=== PATIENT | male | born 1995 | race Caucasian/White ===

== ENCOUNTER 2017-04-28 22:26 | Emergency (ER) | payer BC ==
[~2017-04-28] VITALS: Ht 185.4 cm; Wt 113.4 kg
[~2017-04-28 22:26] MED LIST: LISI10TA PO; PRD20T PO
--- OUTSIDE RECORDS SUMMARY | 2017-04-28 23:36 | XMS REPORT | Clinical Summary ---
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
[2017-04-28] MEDS ORDERED: LACTATED RINGERS 1,000 ML IV ONE (23:43)
[2017-04-29] MEDS ORDERED: cefTRIAXone INJECTION 1,000 MG in NS (IVPB) 50 ML IV ONE ×2
[2017-04-29] MEDS ORDERED: LACTATED RINGERS 1,000 ML IV SCH
[2017-04-29 00:01] LABS: BASOPHILS % (AUTO) 0 % (0-10); EOSINOPHILS % (AUTO) 0 % (0-10); HEMATOCRIT 43 % (40-54); HEMOGLOBIN 14.8 G/DL (13.3-17.7); MEAN CORPUSCULAR HEMOGLOBIN 29 PG (25-34); MEAN CORPUSCULAR HGB CONC 34 G/DL (32-36); MEAN CORPUSCULAR VOLUME 86 FL (80-99); MEAN PLATELET VOLUME 8.8 FL (7.4-10.4); MONOCYTES # (AUTO) 1.5 X 10^3 (0.0-1.0); NEUTROPHILS # (AUTO) 10.7 X 10^3 (1.8-7.8); NEUTROPHILS % (AUTO) 81 % (42-75); PLATELET COUNT 281 10^3/uL (130-400); RED BLOOD COUNT 5.03 10^6/uL (4.35-5.85); RED CELL DISTRIBUTION WIDTH 12.8 % (10.0-14.5); WHITE BLOOD COUNT 13.3 10^3/uL (4.3-11.0)
[2017-04-29 00:02] LABS: LYMPHOCYTES % (AUTO) 9 % (12-44); MONOCYTES % (AUTO) 11 % (0-12)
[2017-04-29 00:04] LABS: PROTHROMBIN TIME PATIENT 13.7 SEC (12.2-14.7)
[2017-04-29 00:14] LABS: ALANINE AMINOTRANSFERASE 46 U/L (0-55); ALBUMIN 4.3 GM/DL (3.2-4.5); ALKALINE PHOSPHATASE 87 U/L (40-136); BILIRUBIN,TOTAL 0.8 MG/DL (0.1-1.0); BUN/CREATININE RATIO 15; CALCIUM 9.4 MG/DL (8.5-10.1); CARBON DIOXIDE 19 MMOL/L (21-32); CHLORIDE 102 MMOL/L (98-107); CREATININE SERUM 1.07 MG/DL (0.60-1.30); GFR ESTIMATED > 60; GLUCOSE 108 MG/DL (70-105); POTASSIUM 3.6 MMOL/L (3.6-5.0); SODIUM 136 MMOL/L (135-145); TOTAL PROTEIN 7.7 GM/DL (6.4-8.2)
--- NOTE | 2017-04-29 00:38 | ED Respiratory ---
General Chief Complaint: Fever-Adult/Adol Stated Complaint: FEVER Source: patient, family (mom) Exam Limitations: no limitations History of Present Illness Date Seen by Provider: Apr 28, 2017 Time Seen by Provider: 22:45 Initial Comments Patient presents to the ER by private conveyance with a chief complaint he was having chest pain on deep inspiration, cough that is nonproductive, fevers with a MAXIMUM TEMPERATURE of 102F for the past 24-48 hours. 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 He does not have a history of asthma, COPD, smoking cigarettes, getting to, previous pneumonias or exposure to influenza that he knows of. He is not on steroids, does not have HIV is not on chemotherapy or any other immunocompromised. 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 He is exposed to dust. Allergies and Home Medications Allergies Coded Allergies: No Known Drug Allergies (Unverified , 12/08/15) Home Medications Prednisone 20 Mg Tab, 40 MG PO DAILY Prescribed by: RAÚL JONES on 12/09/15 0006 Constitutional: chills, No diaphoresis, dizziness, fever, malaise, No weakness EENTM: No ear discharge, No hearing loss Respiratory: cough, No hemoptysis, phlegm, short of breath, No stridor, No wheezing Cardiovascular: No chest pain, No edema, No palpitations Gastrointestinal: No abdominal pain, No constipation, No diarrhea, No nausea, No vomiting Genitourinary: No discharge, No dysuria Musculoskeletal: No back pain, No joint pain Past Kniqctr-Nxmwie-Oraabc Hx Patient Social History Alcohol Use: Occasionally Uses Alcohol Beverage of Choice: Beer Recreational Drug Use: No Smoking Status: Current Someday Smoker Type Used: Cigars Recent Foreign Travel: No Contact w/Someone Who Travel: No Recent Hopitalizations: No Immunizations Up To Date Tetanus Booster (TDap): More than 5yrs PED Vaccines UTD: Yes Seasonal Allergies Seasonal Allergies: Yes Reproductive System Hx Reproductive Disorders: No Family Medical History Significant Family History: No Pertinent Family Hx Physical Exam Vital Signs Capillary Refill : General Appearance: WD/WN, no apparent distress Eyes: Bilateral Eye Normal Inspection, Bilateral Eye PERRL, Bilateral Eye EOMI HEENT: PERRL/EOMI, normal ENT inspection, TMs normal, pharynx normal ( oropharynx is oropharynx is dry) Neck: non-tender, full range of motion, supple, normal inspection Respiratory: chest non-tender, lungs clear, normal breath sounds, no respiratory distress, no accessory muscle use Cardiovascular: normal peripheral pulses, regular rate, rhythm, no edema Gastrointestinal: normal bowel sounds, non tender, soft Neurologic/Psychiatric: alert, normal mood/affect, oriented x 3 Skin: normal color, warm/dry Focused Exam Evaluation Lactate Level Laboratory Tests 04/28/17 23:35: Lactic Acid Level 0.75 Lactic Acid Level Laboratory Tests Test 04/28/17 23:35 Lactic Acid Level 0.75 MMOL/L (0.50-2.00) Progress/Results/Core Measures Suspected Sepsis SIRS Temperature: Pulse: Respiratory Rate: Laboratory Tests 04/28/17 23:35: White Blood Count 13.3H Blood Pressure / Mean: Laboratory Tests 04/28/17 23:35: Lactic Acid Level 0.75 Laboratory Tests 04/28/17 23:35: Creatinine 1.07, INR Comment 1.0, Platelet Count 281, Total Bilirubin 0.8 Results/Orders Lab Results Laboratory Tests Test 04/28/17 23:35 Range/Units White Blood Count 13.3 H 4.3-11.0 10^3/uL Red Blood Count 5.03 4.35-5.85 10^6/uL Hemoglobin 14.8 13.3-17.7 G/DL Hematocrit 43 40-54 % Mean Corpuscular Volume 86 80-99 FL Mean Corpuscular Hemoglobin 29 25-34 PG Mean Corpuscular Hemoglobin Concent 34 32-36 G/DL Red Cell Distribution Width 12.8 10.0-14.5 % Platelet Count 281 130-400 10^3/uL Mean Platelet Volume 8.8 7.4-10.4 FL Neutrophils (%) (Auto) 81 H 42-75 % Lymphocytes (%) (Auto) 9 L 12-44 % Monocytes (%) (Auto) 11 0-12 % Eosinophils (%) (Auto) 0 0-10 % Basophils (%) (Auto) 0 0-10 % Neutrophils # (Auto) 10.7 H 1.8-7.8 X 10^3 Lymphocytes # (Auto) 1.0 1.0-4.0 X 10^3 Monocytes # (Auto) 1.5 H 0.0-1.0 X 10^3 Eosinophils # (Auto) 0.0 0.0-0.3 10^3/uL Basophils # (Auto) 0.0 0.0-0.1 10^3/uL Prothrombin Time 13.7 12.2-14.7 SEC INR Comment 1.0 0.8-1.4 Activated Partial Thromboplast Time 29 24-35 SEC Sodium Level 136 135-145 MMOL/L Potassium Level 3.6 3.6-5.0 MMOL/L Chloride Level 102 98-107 MMOL/L Carbon Dioxide Level 19 L 21-32 MMOL/L Anion Gap 15 H 5-14 MMOL/L Blood Urea Nitrogen 16 7-18 MG/DL Creatinine 1.07 0.60-1.30 MG/DL Estimat Glomerular Filtration Rate > 60 BUN/Creatinine Ratio 15 Glucose Level 108 H 70-105 MG/DL Lactic Acid Level 0.75 0.50-2.00 MMOL/L Calcium Level 9.4 8.5-10.1 MG/DL Total Bilirubin 0.8 0.1-1.0 MG/DL Aspartate Amino Transf (AST/SGOT) 15 5-34 U/L Alanine Aminotransferase (ALT/SGPT) 46 0-55 U/L Alkaline Phosphatase 87 40-136 U/L C-Reactive Protein High Sensitivity 12.73 H 0.00-0.50 MG/DL Total Protein 7.7 6.4-8.2 GM/DL Albumin 4.3 3.2-4.5 GM/DL Micro Results Microbiology 04/28/17 Influenza Types A,B Antigen (CHELSEY) - Final, Complete My Orders Orders - KELLY BAUER Saline Lock/Iv-Start (04/28/17 23:43) Lactated Ringers (Lr 1000 Ml Iv Solution (04/28/17 23:43) Chest Pa/Lat (2 View) (04/28/17 ) Cbc With Automated Diff (04/28/17 23:46) Comprehensive Metabolic Panel (04/28/17 23:46) Blood Culture (04/28/17 23:46) Lactic Acid Analyzer (04/28/17 23:46) Hs C Reactive Protein (04/28/17 23:46) Protime With Inr (04/28/17 23:46) Partial Thromboplastin Time (04/28/17 23:46) Ceftriaxone Injection (Rocephin Injectio (04/29/17 00:00) Lactated Ringers (Lr 1000 Ml Iv Solution (04/29/17 00:00) Influenza A And B Antigens (04/28/17 22:50) Medications Given in ED Current Medications Medications Dose Ordered Sig/Sherron Route Start Time Stop Time Status Last Admin Dose Admin Ceftriaxone Sodium 1000 mg/ Sodium Chloride 50 ml @ 100 mls/hr ONCE ONCE IV 04/29/17 00:00 04/29/17 00:29 DC 04/29/17 00:14 100 MLS/HR Lactated Ringer's 1,000 ml @ 0 mls/hr Q0M ONCE IV 04/28/17 23:43 04/28/17 23:44 DC 04/29/17 00:14 1,000 MLS/HR Vital Signs/I&O Capillary Refill : Progress Note : Time: 00:35 Progress Note No clearly visible infiltrate on chest x-ray however he has a modest white count , pain in his back on deep inspiration and productive cough consistent with pneumonia certainly cover him with Augmentin and azithromycin allow him to go outpatient follow-up next week or 2 with primary care doctor. We've given a dose of Rocephin and azithromycin tonight in the ER. He has improved considerably after a bag of IV fluids and is heart rate is still 100-110 with about half a bag of lactate Ringer's left. Diagnostic Imaging Diagonstic Imaging: Xray Plain Films/CT/US/NM/MRI: chest (2v) Comments No clearly visible infiltrate or other cardiopulmonary processes noted acutely. Reviewed: Reviewed by Me Departure Impression Impression: Primary Impression: Pneumonia Qualified Codes: J18.1 - Lobar pneumonia, unspecified organism Additional Impressions: Dehydration Sepsis Qualified Codes: A41.9 - Sepsis, unspecified organism Disposition: 01 HOME, SELF-CARE Condition: Stable Departure-Patient Inst. Decision time for Depature: 00:41 Referrals: FELIPE ACOSTA MD (PCP/Family) Primary Care Physician Patient Instructions: Community-Acquired Pneumonia, Adult (DC) Add. 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 Take the Augmentin one tablet twice a day for the next 9 days. Follow-up in the next 1-2 weeks with your primary care physician. If you not feeling that you can get enough air in or you're having nausea vomiting or fevers above 102.5 especially more than 3 or 4 days on the antibiotics and return to the ER. All discharge instructions reviewed with patient and/or family. Voiced understanding. Scripts Azithromycin (Azithromycin) 250 Mg Tablet 250 MG PO DAILY, #4 TAB 0 Refills Prov: KELLY BAUER 04/29/17 Amoxicillin/Potassium Clav (Augmentin 875-125 Tablet) 1 Each Tablet 1 EACH PO BID for 9 Days, #18 TAB 0 Refills Prov: KELLY BAUER 04/29/17 Work/School Note: Work Release Form Date Seen in the Emergency Department: Apr 29, 2017 Return to Work: May 03, 2017 Restrictions: No Restrictions Copy Copies To 1: FELIPE ACOSTA MD, TITUS J Apr 29, 2017 00:38
[2017-04-29] MEDS ORDERED: AZIT250T12 PO (00:44)
[2017-04-29] MEDS ORDERED: AMOX-358 PO (00:44)
[2017-04-29] MEDS ORDERED: AZITHROMYCIN 250 MG TAB (ZITHROMAX) PO ONE ×2 (01:01→01:15)
[2017-04-29 01:03] VITALS: BP 142/81
--- NOTE | 2017-04-29 06:52 | Diagnostic Imaging Report ---
INDICATION: Chest pain. FINDINGS: PA and lateral chest show the lungs to be well-aerated. There are no infiltrates. No masses. The heart is not enlarged. There is no pulmonary edema. No hilar adenopathy. No pneumothorax or pleural effusions. No bony abnormalities. IMPRESSION: Normal PA and lateral chest. Dictated by: Dictated on workstation # [id number]
== END 2017-04-29 01:03 | disposition home or self-care (01) ==
LOC: EDUNIT# 22:26 → ER 22:26
DX: J18.9 Pneumonia, unspecified organism (principal); E86.0 Dehydration; A41.9 Sepsis, unspecified organism; F17.290 Nicotine dependence, other tobacco product, uncomplicated; Z79.52 Long term (current) use of systemic steroids
CPT/HCPCS: 36415; 71046; 80053; 83605; 85025; 85610; 85730; 86141; 87040; 87804; 96361; 96365

== ENCOUNTER 2018-05-26 07:39 | Emergency (ER) | payer BC ==
[~2018-05-26] VITALS: Ht 185.4 cm; Wt 111.1 kg
[~2018-05-26 07:39] MED LIST changes: +AMOX-358 PO; +AZIT250T12 PO
[2018-05-26 08:00] LABS: BILIRUBIN,URINE NEGATIVE (NEGATIVE); CLARITY,URINE CLEAR; COLOR,URINE YELLOW; GLUCOSE, URINE (UA) NEGATIVE (NEGATIVE); KETONES,URINE NEGATIVE (NEGATIVE); LEUKOCYTE ESTERASE ,URINE 2+ (NEGATIVE); NITRITE,URINE NEGATIVE (NEGATIVE); PH,URINE 8 (5-9); PROTEIN,URINE 1+ (NEGATIVE); UROBILINOGEN,URINE NORMAL (NORMAL)
[2018-05-26 08:15] LABS: BASOPHILS % (AUTO) 0 % (0-10); EOSINOPHILS % (AUTO) 0 % (0-10); HEMATOCRIT 47 % (40-54); HEMOGLOBIN 15.7 G/DL (13.3-17.7); LYMPHOCYTES # (AUTO) 0.6 X 10^3 (1.0-4.0); LYMPHOCYTES % (AUTO) 4 % (12-44); MEAN CORPUSCULAR HEMOGLOBIN 30 PG (25-34); MEAN CORPUSCULAR HGB CONC 33 G/DL (32-36); MEAN CORPUSCULAR VOLUME 90 FL (80-99); MEAN PLATELET VOLUME 9.2 FL (7.4-10.4); MONOCYTES # (AUTO) 0.7 X 10^3 (0.0-1.0); MONOCYTES % (AUTO) 5 % (0-12); NEUTROPHILS % (AUTO) 91 % (42-75); PLATELET COUNT 313 10^3/uL (130-400); RED CELL DISTRIBUTION WIDTH 13.1 % (10.0-14.5); WHITE BLOOD COUNT 14.3 10^3/uL (4.3-11.0)
[2018-05-26 08:16] LABS: AMORPHOUS SEDIMENT,UR MOD AMOR PHOSPHATE /LPF; BACTERIA,URINE MODERATE /HPF; SQUAMOUS EPITHELIAL CELL,UR RARE /HPF; WBC,URINE 25-50 /HPF
[2018-05-26 08:32] LABS: ALANINE AMINOTRANSFERASE 20 U/L (0-55); ALBUMIN 4.7 GM/DL (3.2-4.5); ALKALINE PHOSPHATASE 87 U/L (40-136); BILIRUBIN,TOTAL 0.6 MG/DL (0.1-1.0); BUN/CREATININE RATIO 15; CARBON DIOXIDE 26 MMOL/L (21-32); CHLORIDE 106 MMOL/L (98-107); CREATININE SERUM 0.92 MG/DL (0.60-1.30); GFR ESTIMATED > 60; GLUCOSE 121 MG/DL (70-105); POTASSIUM 4.4 MMOL/L (3.6-5.0); SODIUM 139 MMOL/L (135-145)
[2018-05-26 08:37] LABS: LYMPHOCYTES % (MANUAL) 5 %; MONOCYTES % (MANUAL) 2 %; NEUTROPHILS % (MANUAL) 93 %; RBC MORPH NORMAL
--- NOTE | 2018-05-26 08:40 | NUR ---
DR NOYOLA IN ROOM WITH PT AT THIS TIME.
--- NOTE | 2018-05-26 08:51 | ED Abdominal Pain ---
General Chief Complaint: Abdominal/GI Problems Stated Complaint: BLOOD IN STOOL;ABD PAIN Nursing Triage Note: PT PRESENTS TO ED WITH COMPLAINTS OF LOWER ABDOMINAL CRAMPING THAT RADIATES UPWARD AND DIZZINESS/LIGHTHEADED/COLD SWEATS. PT STATES STARTED AT 0130 THIS AM. PT STATES HE HAD AN EPISODE OF DIAHRREA AT 0200. REPORTS INITIALLY JUST NOTICED BLOOD WHEN HE WIPED BUT STARTED BLEEDING MORE AFTER EVERY BOWEL MOVEMENT. PT DENIES CONSTIPATION. Sepsis Screen: No Definite Risk Source of Information: Patient Exam Limitations: No Limitations History of Present Illness Date Seen by Provider: May 26, 2018 Time Seen by Provider: 08:47 Initial Comments The patient is a 22-year-old white male who presents with chief complaint of abdominal pain and blood in his stool. He reported that he awakened at 01 30 with abdominal pain. He went to the bathroom and had a loose stool with some blood in it. There have been several more bowel movements all of which have had blood. He has not previously had any hematochezia or melena. He reports colicky pain in the suprapubic area which is relieved by a bowel movement. There is no past history of hemorrhoids. There has been some burning on urination. Timing/Duration: 12 Hours Severity/Quality: Moderate Location: Generalized Abdomen, Suprapubic Activities at Onset: None Associated Symptoms: Fever/Chills Allergies and Home Medications Allergies Coded Allergies: No Known Drug Allergies (Unverified , 12/08/15) Home Medications Amoxicillin/Potassium Clav 1 Each Tablet, 1 EACH PO BID Prescribed by: KELLY BAUER on 04/29/1743 Azithromycin 250 Mg Tablet, 250 MG PO DAILY Prescribed by: KELLY BAUER on 04/29/1743 Prednisone 20 Mg Tab, 40 MG PO DAILY Prescribed by: RAÚL JONES on 12/09/15 0006 Patient Home Medication List Home Medication List Reviewed: Yes Review of Systems Review of Systems Constitutional: see HPI EENTM: No Symptoms Reported Respiratory: No Symptoms Reported Cardiovascular: No Symptoms Reported Gastrointestinal: See HPI, Diarrhea, Nausea, Rectal Bleeding Genitourinary: Burning Skin: no symptoms reported Psychiatric/Neurological: No Symptoms Reported Endocrine: No Symptoms Reported Hematologic/Lymphatic: No Symptoms Reported Past Tfedgie-Nlaupj-Wctngb Hx Patient Social History Alcohol Use: Occasionally Uses Number of Drinks Today: AA Alcohol Beverage of Choice: Beer Recreational Drug Use: No Smoking Status: Current Everyday Smoker Type Used: Cigars Recent Foreign Travel: No Contact w/Someone Who Travel: No Recent Infectious Disease Expo: No Recent Hopitalizations: No Immunizations Up To Date Tetanus Booster (TDap): More than 5yrs PED Vaccines UTD: Yes Seasonal Allergies Seasonal Allergies: Yes Past Medical History Surgeries: Yes (nodule removed from under left arm) Respiratory: No Cardiac: Yes (HTN controlled with diet changes) Hypertension Neurological: No Reproductive Disorders: No Genitourinary: No Gastrointestinal: No Musculoskeletal: No Endocrine: No Cancer: No Psychosocial: No Integumentary: Yes (hx of cat scratch fever) Blood Disorders: No Family Medical History No Pertinent Family Hx Physical Exam Vital Signs Vital Signs - First Documented 05/26/18 08:09 Temp 97.4 Pulse 72 Resp 20 B/P (MAP) 133/79 (97) Pulse Ox 97 Capillary Refill : Less Than 3 Seconds Height/Weight/BMI Height: 6'1.00" Weight: 245lbs. oz. 111.996560uq; BMI Method:Stated General Appearance: mild distress HEENT: normal ENT inspection Respiratory: chest non-tender, lungs clear, normal breath sounds, no respiratory distress, no accessory muscle use Cardiovascular: normal peripheral pulses, regular rate, rhythm, no edema, no gallop, no JVD, no murmur Gastrointestinal: other (no pain to palpation) Extremities: normal range of motion, non-tender, normal inspection, no pedal edema, no calf tenderness, normal capillary refill, pelvis stable Exam Comments Rectal exam visual shows no evidence of hemorrhoids. Digital also is negative with no palpable internal hemorrhoids and no blood on the finger. Progress/Results/Core Measures Results/Orders Lab Results Laboratory Tests Test 05/26/18 07:54 05/26/18 08:09 Range/Units Urine Color YELLOW Urine Clarity CLEAR Urine pH 8 5-9 Urine Specific [place] 1.010 L 1.016-1.022 Urine Protein 1+ H NEGATIVE Urine Glucose (UA) NEGATIVE NEGATIVE Urine Ketones NEGATIVE NEGATIVE Urine Nitrite NEGATIVE NEGATIVE Urine Bilirubin NEGATIVE NEGATIVE Urine Urobilinogen NORMAL NORMAL MG/DL Urine Leukocyte Esterase 2+ H NEGATIVE Urine RBC (Auto) NEGATIVE NEGATIVE Urine RBC NONE /HPF Urine WBC 25-50 H /HPF Urine Squamous Epithelial Cells RARE /HPF Urine Crystals NONE /LPF Urine Amorphous Sediment MOD SUNNY PHOSPHATE H /LPF Urine Bacteria MODERATE H /HPF Urine Casts NONE /LPF Urine Mucus NEGATIVE /LPF Urine Culture Indicated YES White Blood Count 14.3 H 4.3-11.0 10^3/uL Red Blood Count 5.25 4.35-5.85 10^6/uL Hemoglobin 15.7 13.3-17.7 G/DL Hematocrit 47 40-54 % Mean Corpuscular Volume 90 80-99 FL Mean Corpuscular Hemoglobin 30 25-34 PG Mean Corpuscular Hemoglobin Concent 33 32-36 G/DL Red Cell Distribution Width 13.1 10.0-14.5 % Platelet Count 313 130-400 10^3/uL Mean Platelet Volume 9.2 7.4-10.4 FL Neutrophils (%) (Auto) 91 H 42-75 % Lymphocytes (%) (Auto) 4 L 12-44 % Monocytes (%) (Auto) 5 0-12 % Eosinophils (%) (Auto) 0 0-10 % Basophils (%) (Auto) 0 0-10 % Neutrophils # (Auto) 13.0 H 1.8-7.8 X 10^3 Lymphocytes # (Auto) 0.6 L 1.0-4.0 X 10^3 Monocytes # (Auto) 0.7 0.0-1.0 X 10^3 Eosinophils # (Auto) 0.0 0.0-0.3 10^3/uL Basophils # (Auto) 0.0 0.0-0.1 10^3/uL Neutrophils % (Manual) 93 % Lymphocytes % (Manual) 5 % Monocytes % (Manual) 2 % Blood Morphology Comment NORMAL Sodium Level 139 135-145 MMOL/L Potassium Level 4.4 3.6-5.0 MMOL/L Chloride Level 106 98-107 MMOL/L Carbon Dioxide Level 26 21-32 MMOL/L Anion Gap 7 5-14 MMOL/L Blood Urea Nitrogen 14 7-18 MG/DL Creatinine 0.92 0.60-1.30 MG/DL Estimat Glomerular Filtration Rate > 60 BUN/Creatinine Ratio 15 Glucose Level 121 H 70-105 MG/DL Calcium Level 10.0 8.5-10.1 MG/DL Corrected Calcium 8.5-10.1 MG/DL Total Bilirubin 0.6 0.1-1.0 MG/DL Aspartate Amino Transf (AST/SGOT) 15 5-34 U/L Alanine Aminotransferase (ALT/SGPT) 20 0-55 U/L Alkaline Phosphatase 87 40-136 U/L Total Protein 8.0 6.4-8.2 GM/DL Albumin 4.7 H 3.2-4.5 GM/DL My Orders Orders - NATY NOYOLA MD Cbc With Automated Diff (05/26/18 07:42) Comprehensive Metabolic Panel (05/26/18 07:42) Ua Culture If Indicated (05/26/18 07:42) Manual Differential (05/26/18 08:09) Urine Culture (05/26/18 07:54) Ct Abdomen/Pelvis W (05/26/18 09:01) Iohexol Injection (Omnipaque 350 Mg/Ml 1 (05/26/18 09:15) Received Contrast (Hold Metformin- Contr (05/26/18 09:15) Ceftriaxone For Iv Use (Rocephin For I (05/26/18 10:15) Medications Given in ED Current Medications Medications Dose Ordered Sig/Sherron Route Start Time Stop Time Status Last Admin Dose Admin Ceftriaxone Sodium 1000 mg/ Sterile Water 10 ml @ 200 mls/hr ONCE ONCE IV 05/26/18 10:15 05/26/18 10:17 DC 05/26/18 10:23 200 MLS/HR Iohexol 100 ml ONCE ONCE IV 05/26/18 09:15 05/26/18 09:16 DC 05/26/18 09:25 100 ML Vital Signs/I&O 05/26/18 08:09 Temp 97.4 Pulse 72 Resp 20 B/P (MAP) 133/79 (97) Pulse Ox 97 Blood Pressure Mean: 97 Departure Communication (Admissions) 1030 CT is reported negative. Discussed with the patient and his mother. I believe that he should have a colonoscopy. They would prefer Dr. Calzada if available. He is expected in the ER very shortly to see another patient and this will be pursued. 1120. The patient was seen briefly by Dr. Calzada. He will have an office visit on Wednesday, May 30 arrange colonoscopy. Impression Primary Impression: hematochezia Additional Impression: UTI (urinary tract infection) Disposition: 01 HOME, SELF-CARE Condition: Stable/Unchanged Departure-Patient Inst. Decision time for Depature: 11:27 Referrals: FELIPE ACOSTA MD (PCP/Family) Primary Care Physician Patient Instructions: No Instuctions Given Add. Discharge Instructions: All discharge instructions reviewed with patient and/or family. Voiced understanding. Appointment May 30 at [address] Calzada's office NATY NOYOLA MD May 26, 2018 08:51
--- NOTE | 2018-05-26 09:11 | NUR ---
PT TO CT AT THIS TIME
[2018-05-26] MEDS ORDERED: IOHEXOL 350 MG/ML 100 ML (OMNIPAQUE 350) VIAL IV ONE (09:15)
[2018-05-26] MEDS ORDERED: HOLD METFORMIN - RECEIVED CONTRAST 20 ML VIAL IV SCH (09:15)
--- NOTE | 2018-05-26 09:40 | Diagnostic Imaging Report ---
PROCEDURE: CT abdomen and pelvis with contrast. TECHNIQUE: Multiple contiguous axial images were obtained through the abdomen and pelvis after administration of intravenous contrast. Auto Exposure Controls were utilized during the CT exam to meet ALARA standards for radiation dose reduction. INDICATION: Abdominal pain and GI bleeding Lung bases are clear. Liver appears normal. The gallbladder is present. The pancreas appears normal. Spleen is not enlarged. Kidneys and adrenals appear normal. The appendix appears normal. Small bowel is not dilated. Colon appears normal. Urinary bladder prostate appear normal. There is no intraperitoneal free air or free fluid. Impression: Negative CT abdomen and pelvis Dictated by: Dictated on workstation # [id number]
--- NOTE | 2018-05-26 09:45 | NUR ---
PT BACK FROM CT AT THIS TIME.
[2018-05-26] MEDS ORDERED: cefTRIAXone FOR IV USE 1,000 MG in WATER (STERILE) FOR INJECTION 10 ML IV ONE (10:15)
--- NOTE | 2018-05-26 10:23 | NUR ---
DR NOYOLA IN ROOM WITH PT DSCUSSING RESULTS AT THIS TIME.
[2018-05-26] MEDS ORDERED: CEFD300C3 PO (12:08)
[2018-05-26 12:11] VITALS: BP 126/80
== END 2018-05-26 12:11 | disposition home or self-care (01) ==
LOC: EDUNIT# 07:39 → ER 07:40
DX: K92.1 Melena (principal); N39.0 Urinary tract infection, site not specified; I10 Essential (primary) hypertension; F17.290 Nicotine dependence, other tobacco product, uncomplicated
CPT/HCPCS: 36415; 74177; 80053; 81000; 85007; 85027; 87088

== ENCOUNTER 2019-11-06 23:11 | Emergency (ER) | payer BC ==
[~2019-11-06] VITALS: Ht 197 cm; Wt 113.0 kg
[~2019-11-06 23:11] MED LIST changes: +CEFD300C3 PO
[2019-11-06 23:53] LABS: BILIRUBIN,URINE NEGATIVE (NEGATIVE); CLARITY,URINE CLEAR; COLOR,URINE YELLOW; GLUCOSE, URINE (UA) NEGATIVE (NEGATIVE); KETONES,URINE NEGATIVE (NEGATIVE); LEUKOCYTE ESTERASE ,URINE NEGATIVE (NEGATIVE); NITRITE,URINE NEGATIVE (NEGATIVE); PH,URINE 5.5 (5-9); PROTEIN,URINE NEGATIVE (NEGATIVE)
[2019-11-06 23:54] LABS: BASOPHILS % (AUTO) 0 % (0-10); EOSINOPHILS # (AUTO) 0.2 10^3/uL (0.0-0.3); EOSINOPHILS % (AUTO) 2 % (0-10); HEMATOCRIT 45 % (40-54); HEMOGLOBIN 15.2 G/DL (13.3-17.7); LYMPHOCYTES # (AUTO) 1.9 X 10^3 (1.0-4.0); LYMPHOCYTES % (AUTO) 22 % (12-44); MEAN CORPUSCULAR HEMOGLOBIN 30 PG (25-34); MEAN CORPUSCULAR HGB CONC 34 G/DL (32-36); MEAN CORPUSCULAR VOLUME 88 FL (80-99); MEAN PLATELET VOLUME 8.8 FL (7.4-10.4); MONOCYTES # (AUTO) 0.8 X 10^3 (0.0-1.0); MONOCYTES % (AUTO) 9 % (0-12); NEUTROPHILS % (AUTO) 67 % (42-75); PLATELET COUNT 327 10^3/uL (130-400); WHITE BLOOD COUNT 8.9 10^3/uL (4.3-11.0)
--- NOTE | 2019-11-06 23:54 | ED General ---
General Chief Complaint: General Problems/Pain Stated Complaint: WEIRD FEELING ON LEFT SIDE OF CHEST,ARMS GLORIA Nursing Triage Note: intermittant bilateral arm numbness/tingling, left chest tingling when laying down. Nursing Sepsis Screen: No Definite Risk Source of Information: Patient Exam Limitations: No Limitations History of Present Illness Date Seen by Provider: Nov 06, 2019 Time Seen by Provider: 23:27 Initial Comments This 23-year-old young man presents to the emergency room with a "creeping feeling up about a chest "accompanied by sensations of dizziness and numbness down his arms. He had an episode that occurred earlier this evening and then dissipated. After a repeat episode he decided to present to the emergency room. Immediately after the episodes he felt cold chills and clammy and had a sudden sensation of fatigue. Symptoms have resolved except for some slight lightheadedness at this time. He was watching movies at the time of onset. Earlier in the weekend he had been riding on scene and in in [place]. He drank 2 beers on Wednesday but otherwise denies any drug or alcohol use. Allergies and Home Medications Allergies Coded Allergies: No Known Drug Allergies (Unverified , 12/08/15) Home Medications No Active Prescriptions or Reported Meds Patient Home Medication List Home Medication List Reviewed: Yes Review of Systems Review of Systems Constitutional: see HPI EENTM: no symptoms reported Respiratory: no symptoms reported Cardiovascular: see HPI Gastrointestinal: no symptoms reported Genitourinary: no symptoms reported Musculoskeletal: no symptoms reported Skin: no symptoms reported Psychiatric/Neurological: See HPI Hematologic/Lymphatic: No Symptoms Reported Immunological/Allergic: no symptoms reported Past Tkvduei-Dzucbv-Azrcne Hx Past Med/Social Hx: Reviewed Nursing Past Med/Soc Hx Patient Social History Alcohol Use: Occasionally Uses Number of Drinks Today: AA Alcohol Beverage of Choice: Beer Recreational Drug Use: No Smoking Status: Former Smoker Type Used: Cigars Recent Foreign Travel: No Contact w/Someone Who Travel: No Recent Infectious Disease Expo: No Recent Hopitalizations: No Physical Abuse: No Sexual Abuse: No Mistreated: No Fear: No Immunizations Up To Date Tetanus Booster (TDap): Unknown PED Vaccines UTD: Yes Seasonal Allergies Seasonal Allergies: Yes Past Medical History Surgeries: Yes (nodule removed from under left arm) Respiratory: No Cardiac: Yes Hypertension Neurological: No Reproductive Disorders: No Genitourinary: No Gastrointestinal: No Musculoskeletal: No Endocrine: No HEENT: No Cancer: No Psychosocial: No Integumentary: Yes (hx of cat scratch fever) Blood Disorders: No Family Medical History No Pertinent Family Hx Physical Exam Vital Signs Vital Signs - First Documented 11/06/19 23:18 Temp 36.9 Pulse 73 Resp 18 B/P (MAP) 157/101 (119) Pulse Ox 97 O2 Delivery Room Air Capillary Refill : Less Than 3 Seconds Height, Weight, BMI Height: 6'1.00" Weight: 245lbs. oz. 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-XII Norm as Tested, Other (normal finger to nose and heel to quesada) Skin: Normal Color, Warm/Dry Progress/Results/Core Measures Suspected Sepsis Recent Fever Within 48 Hours: No Infection Criteria Present: None New/Unexplained Altered Menta: No Sepsis Screen: No Definite Risk SIRS Temperature: Pulse: 73 Respiratory Rate: 18 Laboratory Tests 11/06/19 23:40: White Blood Count 8.9 Blood Pressure 157 /101 Mean: 119 Laboratory Tests 11/06/19 23:40: Creatinine 0.90, Platelet Count 327, Total Bilirubin 0.2 Results/Orders Lab Results Laboratory Tests Test 11/06/19 23:39 11/06/19 23:40 Range/Units Urine Color YELLOW Urine Clarity CLEAR Urine pH 5.5 5-9 Urine Specific [place] >=1.030 1.016-1.022 Urine Protein NEGATIVE NEGATIVE Urine Glucose (UA) NEGATIVE NEGATIVE Urine Ketones NEGATIVE NEGATIVE Urine Nitrite NEGATIVE NEGATIVE Urine Bilirubin NEGATIVE NEGATIVE Urine Urobilinogen 0.2 < = 1.0 MG/DL Urine Leukocyte Esterase NEGATIVE NEGATIVE Urine RBC (Auto) NEGATIVE NEGATIVE Urine RBC NONE /HPF Urine WBC NONE /HPF Urine Squamous Epithelial Cells 2-5 /HPF Urine Crystals NONE /LPF Urine Bacteria NEGATIVE /HPF Urine Casts NONE /LPF Urine Mucus SMALL H /LPF Urine Culture Indicated NO White Blood Count 8.9 4.3-11.0 10^3/uL Red Blood Count 5.08 4.35-5.85 10^6/uL Hemoglobin 15.2 13.3-17.7 G/DL Hematocrit 45 40-54 % Mean Corpuscular Volume 88 80-99 FL Mean Corpuscular Hemoglobin 30 25-34 PG Mean Corpuscular Hemoglobin Concent 34 32-36 G/DL Red Cell Distribution Width 13.1 10.0-14.5 % Platelet Count 327 130-400 10^3/uL Mean Platelet Volume 8.8 7.4-10.4 FL Neutrophils (%) (Auto) 67 42-75 % Lymphocytes (%) (Auto) 22 12-44 % Monocytes (%) (Auto) 9 0-12 % Eosinophils (%) (Auto) 2 0-10 % Basophils (%) (Auto) 0 0-10 % Neutrophils # (Auto) 6.0 1.8-7.8 X 10^3 Lymphocytes # (Auto) 1.9 1.0-4.0 X 10^3 Monocytes # (Auto) 0.8 0.0-1.0 X 10^3 Eosinophils # (Auto) 0.2 0.0-0.3 10^3/uL Basophils # (Auto) 0.0 0.0-0.1 10^3/uL Sodium Level 140 135-145 MMOL/L Potassium Level 3.7 3.6-5.0 MMOL/L Chloride Level 107 98-107 MMOL/L Carbon Dioxide Level 23 21-32 MMOL/L Anion Gap 10 5-14 MMOL/L Blood Urea Nitrogen 13 7-18 MG/DL Creatinine 0.90 0.60-1.30 MG/DL Estimat Glomerular Filtration Rate > 60 BUN/Creatinine Ratio 14 Glucose Level 104 70-105 MG/DL Calcium Level 9.2 8.5-10.1 MG/DL Corrected Calcium 9.0 8.5-10.1 MG/DL Magnesium Level 2.0 1.6-2.4 MG/DL Total Bilirubin 0.2 0.1-1.0 MG/DL Aspartate Amino Transf (AST/SGOT) 18 5-34 U/L Alanine Aminotransferase (ALT/SGPT) 32 0-55 U/L Alkaline Phosphatase 89 40-136 U/L C-Reactive Protein High Sensitivity 0.36 0.00-0.50 MG/DL Total Protein 7.7 6.4-8.2 GM/DL Albumin 4.2 3.2-4.5 GM/DL My Orders Orders - BALJINDER YUEN MD Ed Iv/Invasive Line Start (11/06/19 23:34) Ekg Tracing (11/06/19 23:34) Monitor-Rhythm Ecg Trace Only (11/06/19 23:34) Cbc With Automated Diff (11/06/19 23:34) Comprehensive Metabolic Panel (11/06/19 23:34) Hs C Reactive Protein (11/06/19 23:34) Magnesium (11/06/19 23:34) Ua Culture If Indicated (11/06/19:) Vital Signs/I&O 11/06/19 11/07/19 23:18 00:37 Temp 36.9 36.9 Pulse 73 80 Resp 18 25 B/P (MAP) 157/101 (119) 139/98 (119) Pulse Ox 97 97 O2 Delivery Room Air Room Air Capillary Refill : Less Than 3 Seconds Blood Pressure Mean: 119 Progress Note : Progress Note Workup was unremarkable and patient's symptoms resolved. His urine specific gravity was high and aggressive oral hydration was recommended. He was invited to return for worsening symptoms. ECG Initial ECG Impression Date: Nov 06, 2019 Initial ECG Impression Time: 23:42 Initial ECG Rate: 69 Initial ECG Rhythm: Normal Sinus Initial ECG Intervals: Normal Initial ECG Impression: Normal Comment Normal sinus rhythm with no ST elevation or depression. No abnormal intervals or axis deviation. Departure Impression Primary Impression: Lightheadedness Additional Impression: Paresthesias Disposition: 01 HOME, SELF-CARE Condition: Improved Departure-Patient Inst. Decision time for Depature: 00:34 Referrals: NO,LOCAL PHYSICIAN (PCP/Family) Primary Care Physician Patient Instructions: Paresthesia (DC) Add. Discharge Instructions: Your workup in the emergency room is unremarkable. Your urine is a bit concentrated which suggest you should drink more clear liquids. Follow-up with a primary care provider soon as possible. Return to the emergency room if you have worsening symptoms. All discharge instructions reviewed with patient and/or family. Voiced understanding. Scripts No Active Prescriptions or Reported Meds BALJINDER YUEN MD Nov 06, 2019 23:54
[2019-11-07 00:02] LABS: BACTERIA,URINE NEGATIVE /HPF
[2019-11-07 00:04] LABS: ALBUMIN 4.2 GM/DL (3.2-4.5); CHLORIDE 107 MMOL/L (98-107); POTASSIUM 3.7 MMOL/L (3.6-5.0); SODIUM 140 MMOL/L (135-145)
[2019-11-07 00:05] LABS: CALCIUM 9.2 MG/DL (8.5-10.1)
[2019-11-07 00:06] LABS: GLUCOSE 104 MG/DL (70-105)
[2019-11-07 00:07] LABS: TOTAL PROTEIN 7.7 GM/DL (6.4-8.2)
[2019-11-07 00:08] LABS: BILIRUBIN,TOTAL 0.2 MG/DL (0.1-1.0); CARBON DIOXIDE 23 MMOL/L (21-32)
[2019-11-07 00:10] LABS: ALKALINE PHOSPHATASE 89 U/L (40-136); GFR ESTIMATED > 60
[2019-11-07 00:11] LABS: BUN/CREATININE RATIO 14
[2019-11-07 00:13] LABS: ALANINE AMINOTRANSFERASE 32 U/L (0-55)
[2019-11-07 00:37] VITALS: BP 139/98
== END 2019-11-07 00:37 | disposition home or self-care (01) ==
LOC: EDUNIT# 23:11 → ER 23:14
DX: R42 Dizziness and giddiness (principal); R20.2 Paresthesia of skin; Z87.891 Personal history of nicotine dependence
CPT/HCPCS: 36415; 80053; 81000; 83735; 85025; 86141; 93005; 93041

== ENCOUNTER 2019-11-22 23:22 | Emergency (ER) | payer BC ==
[~2019-11-22] VITALS: Ht 188 cm; Wt 114.0 kg
[2019-11-23] MEDS ORDERED: RX-HYDROXYZINE PAMOATE 25 MG CAP #4 PO STA (01:17)
[2019-11-23] MEDS ORDERED: HYDR50CA3 PO (01:20)
--- NOTE | 2019-11-23 01:20 | ED General ---
General Chief Complaint: General Problems/Pain Stated Complaint: HAVING A WEIRD FEELING ALL OVER Nursing Triage Note: C/O GENERAL BODY TINGLING AFTER LAYING DOWN APPROX. 2129. REPORTS SYMPTOMS LASTED APPROX. 20MIN. Nursing Sepsis Screen: No Definite Risk Source of Information: Patient History of Present Illness Date Seen by Provider: Nov 23, 2019 Time Seen by Provider: 00:55 Initial Comments PT ARRIVES VIA POV FROM HOME STATES AROUND 2129 TONIGHT, WHILE HE WAS LAYING DOWN TO GO TO SLEEP, AND WAS TRYING TO RELAX, HE HAD " A WEIRD FEELING IN MY CHEST, THEN I HAD TINGLING ALL OVER, THEN I GOT REAL SHAKEY AND DIZZY AND I HAD A WEIRD FEELING THROUGHOUT MY WHOLE BODY AND MY LOWER JAW LOCKED UP, AND I HAD AN UNEASY FEELING ALL OVER MY BODY AND I GOT SCARED" ENTIRE EPISODE LASTED 15-20 MINUTES AND HAS NOT RETURNED STATES "THEN WHEN IT'S OVER I FEEL REAL TIRED" SEEN HER 11/06/19 FOR SAME COMPLAINT--WORK UP DONE INCLUDING LAB AND EKG AND ALL WERE NORMAL PT WAS ADVISED TO FOLLOW UP WITH HIS PCP, WHICH PT HAS NOT ATTEMPTED TO DO PT STATES IT HAS HAPPENED A COUPLE OF TIMES SINCE PT STATES HE FARMS FOR A LIVING DENIES ANY STRESSORS PCP: DR. ACOSTA Allergies and Home Medications Allergies Coded Allergies: No Known Drug Allergies (Unverified , 12/08/15) Home Medications Hydroxyzine Pamoate 50 Mg Capsule, 50 MG PO Q6H PRN for ANXIETY Prescribed by: AMAN LINTON on 11/23/19 0120 Patient Home Medication List Home Medication List Reviewed: Yes Review of Systems Review of Systems Constitutional: see HPI, dizziness EENTM: see HPI; No nose congestion, No throat pain Respiratory: No short of breath Cardiovascular: see HPI, chest pain; No palpitations, No syncope Gastrointestinal: no symptoms reported; No abdominal pain, No nausea, No vomiting Genitourinary: no symptoms reported Musculoskeletal: no symptoms reported Skin: no symptoms reported Psychiatric/Neurological: See HPI Hematologic/Lymphatic: No Symptoms Reported Immunological/Allergic: no symptoms reported Past Dbxmils-Feawdc-Vetrsa Hx Past Med/Social Hx: Reviewed and Corrections made Patient Social History Alcohol Use: Rarely Uses Number of Drinks Today: AA Alcohol Beverage of Choice: Beer Recreational Drug Use: No Smoking Status: Current Someday Smoker Type Used: Cigars Recent Foreign Travel: No Contact w/Someone Who Travel: No Recent Infectious Disease Expo: No Recent Hopitalizations: No Immunizations Up To Date Tetanus Booster (TDap): Unknown PED Vaccines UTD: Yes Seasonal Allergies Seasonal Allergies: Yes Past Medical History Surgeries: Yes (nodule removed from under left arm) Respiratory: No Cardiac: Yes (HTN TEEN, NO MEDICATIONS FOR 7-8 YEARS) Hypertension Neurological: No Reproductive Disorders: No Genitourinary: No Gastrointestinal: No Musculoskeletal: No Endocrine: No HEENT: No Cancer: No Psychosocial: No Integumentary: Yes (hx of cat scratch fever) Blood Disorders: No Family Medical History No Pertinent Family Hx Physical Exam Vital Signs Vital Signs - First Documented 11/23/19 00:17 Temp 36.8 Pulse 65 Resp 16 B/P (MAP) 145/90 (108) Pulse Ox 98 O2 Delivery Room Air Capillary Refill : Less Than 3 Seconds Height, Weight, BMI Height: 6'1.00" Weight: 245lbs. oz. 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, 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 as Tested Skin: Normal Color, Warm/Dry Progress/Results/Core Measures Suspected Sepsis Recent Fever Within 48 Hours: No Infection Criteria Present: None New/Unexplained Altered Menta: No Sepsis Screen: No Definite Risk SIRS Temperature: Pulse: 65 Respiratory Rate: 16 Blood Pressure 145 /90 Mean: 108 Results/Orders My Orders Orders - AMAN LINTON DO Rx-Hydroxyzine Pamoate (Rx-Vistaril) (11/23/19 01:17) Rx-Hydroxyzine Pamoate (Rx-Vistaril) (11/23/19 01:23) Vital Signs/I&O 11/23/19 11/23/19 00:17 01:28 Temp 36.8 36.6 Pulse 65 66 Resp 16 16 B/P (MAP) 145/90 (108) 140/88 (108) Pulse Ox 98 99 O2 Delivery Room Air Room Air Capillary Refill : Less Than 3 Seconds Blood Pressure Mean: 108 Progress Note : Progress Note DISCUSSED WITH PT, THAT PY HAS NOT HAD ANY RETURN OF SYMPTOMS AND HAS HAD A WORK UP IN THE ER EARLIER THIS MONTH, OPT TO HAVE PT FOLLOW UP WITH HIS PCP FOR FURTHER EVALUATION. Departure Impression Primary Impression: Anxiety hyperventilation Disposition: 01 HOME, SELF-CARE Condition: Stable Departure-Patient Inst. Referrals: FELIPE ACOSTA MD NO,LOCAL PHYSICIAN (PCP) Primary Care Physician Patient Instructions: Anxiety, Adult (DC), Hyperventilation Add. Discharge Instructions: HOME, REST LOTS OF CLEAR LIQUIDS AVOID CAFFEINE AND OTHER STIMULANTS FOLLOW UP WITH DR. ACOSTA THIS WEEK FOR FURTHER CARE All discharge instructions reviewed with patient and/or family. Voiced understanding. Scripts Hydroxyzine Pamoate (Hydroxyzine Pamoate) 50 Mg Capsule 50 MG PO Q6H PRN for ANXIETY, #15 CAP Prov: AMAN LINTON DO 11/23/19 AMAN LINTON DO Nov 23, 2019 01:20
[2019-11-23] MEDS ORDERED: RX-HYDROXYZINE PAMOATE 25 MG CAP #4 PO ONE (01:23)
[2019-11-23 01:28] VITALS: BP 140/88
== END 2019-11-23 01:28 | disposition home or self-care (01) ==
LOC: EDUNIT# 23:22 → ER 23:25
DX: F41.9 Anxiety disorder, unspecified (principal); R06.4 Hyperventilation; I10 Essential (primary) hypertension; F17.290 Nicotine dependence, other tobacco product, uncomplicated; Z91.14 Patient's other noncompliance with medication regimen
CPT/HCPCS: 99283

== ENCOUNTER → 2022-08-04 | Outpatient (CLI) | payer BC ==
[~2022-08-04] MED LIST changes: +HYDR50CA3 PO
--- NOTE | 2022-08-04 16:52 | Diagnostic Imaging Report ---
Indication: Back pain. Time of Exam: 1:59 PM AP, lateral and coned lumbosacral views of the lumbar spine were obtained. Curvature and alignment is normal. Vertebral body heights and disc spaces are fairly well-maintained. There may be very mild disc space narrowing at L5-S1. No fracture or subluxation is identified. Impression: Questionable mild disc space narrowing at L5-S1. The study is otherwise unremarkable. Dictated by: Dictated on workstation # [id number]
== END ==
LOC: RAD 13:41
PROVIDERS: ATTEND Family Medicine
DX: M54.50 Low back pain, unspecified (principal)
CPT/HCPCS: 72100

== ENCOUNTER 2022-09-23 10:09 | Emergency (ER) | payer BC ==
[~2022-09-23] VITALS: Ht 187 cm; Wt 119.0 kg
--- NOTE | 2022-09-23 11:14 | ED Chest Pain ---
General Chief Complaint: Chest Pain Stated Complaint: SOB | WEAKNESS | LT SIDE PAIN Nursing Triage Note: PT AMB TO RM 9 PT CO OF SHARP L SIDE OF CHEST PAIN 10/08. PAIN GONE PT STATES HANDS WENT NUMB BILATERALLY, FELT LIKE HE WAS GONNA PASS OUT AND NOW HAS WEAKNESS. HAPPENED ABOUT 0945. DENIES PAIN AT THIS X. PT DOES HAVE SOME SOA. 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 He states the pain started and then he felt a little short of breath, he states he felt like his "jaw was locking up" on both sides, he felt heavy and like he was about to pass out. He states he still feels a little short of breath. The pain was brief. It did not radiate. He denies palpitations or nausea. He has never had anything like this happen before. He denies any recent increased stress or anxiety. No recent illnesses. He takes medication for high blood pressure. No family history of early coronary artery disease. 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 Denies leg swelling or calf pain. No recent fevers or chills. He states he felt bilateral "hand tingling". All of the symptoms occurred about 930/945. Timing/Duration: 1-3 hours Severity/Quality: moderate, sharp Location: other (left Chest) Radiation: no radiation Activities at Onset: other (riding in a tractor) Prior CP/Workup: no prior chest pain, no prior cardiac workup Associated Symptoms: shortness of breath Allergies and Home Medications Allergies Coded Allergies: No Known Drug Allergies (Unverified , 12/08/15) Patient Home Medication List Home Medication List Reviewed: Yes Hydroxyzine Pamoate (Hydroxyzine Pamoate) 50 Mg Capsule, 50 MG PO Q6H PRN for ANXIETY Prescribed by: AMAN LINTON on 11/23/19 0120 Review of Systems Review of Systems Constitutional: see HPI Respiratory: Shortness of Air Cardiovascular: Chest Pain (left lower lat rib area) Genitourinary: No Symptoms Reported Musculoskeletal: no symptoms reported Skin: no symptoms reported Psychiatric/Neurological: Weakness All Other Systems Reviewed Negative Unless Noted: Yes Past Tcxwruy-Zjulyt-Drvjci Hx Patient Social History Tobacco Use?: No Substance use?: No Alcohol Use?: Yes Alcohol Frequency: Once in a while Immunizations Up To Date Tetanus Booster (TDap): Unknown PED Vaccines UTD: Yes Seasonal Allergies Seasonal Allergies: Yes Past Medical History Surgery/Hospitalization HX: HTN Surgeries: Yes (nodule removed from under left arm) Respiratory: No Cardiac: Yes (HTN TEEN, NO MEDICATIONS FOR 7-8 YEARS) Hypertension Neurological: No Reproductive Disorders: No Genitourinary: No Gastrointestinal: No Musculoskeletal: No Endocrine: No HEENT: No Cancer: No Psychosocial: No Integumentary: Yes (hx of cat scratch fever) Blood Disorders: No Family Medical History No Pertinent Family Hx Physical Exam Vital Signs Vital Signs - First Documented 09/23/22 10:20 Temp 37.1 Pulse 85 Resp 18 B/P (MAP) 147/87 (107) Pulse Ox 97 Capillary Refill : Less Than 3 Seconds Height, Weight, BMI Height: 6'1.00" Weight: 245lbs. oz. [id number]; 34.00 BMI Method:Stated General Appearance: No Apparent Distress, WD/WN HEENT: PERRL/EOMI Neck: Normal Inspection Respiratory: Lungs Clear, Normal Breath Sounds, No Accessory Muscle Use, No Respiratory Distress, Other (no reproducible Chest wall tenderness - no overlying rashes) Cardiovascular: Regular Rate, Rhythm, No Murmur, Other (occ ectopic beat auscultated) Gastrointestinal: Normal Bowel Sounds, Non Tender, Soft Extremity: Normal Capillary Refill, Normal Inspection, Normal Range of Motion, Non Tender, No Calf Tenderness, No Pedal Edema Neurologic/Psychiatric: Alert, Oriented x3, No Motor/Sensory Deficits, Normal Mood/Affect Skin: Normal Color, Warm/Dry Progress/Results/Core Measures Results/Orders Lab Results Laboratory Tests Test 09/23/22 10:30 09/23/22 12:47 Range/Units White Blood Count 8.9 4.3-11.0 10^3/uL Red Blood Count 4.86 4.30-5.52 10^6/uL Hemoglobin 14.3 13.3-17.7 g/dL Hematocrit 43 40-54 % Mean Corpuscular Volume 89 80-99 fL Mean Corpuscular Hemoglobin 29 25-34 pg Mean Corpuscular Hemoglobin Concent 33 32-36 g/dL Red Cell Distribution Width 12.6 10.0-14.5 % Platelet Count 342 130-400 10^3/uL Mean Platelet Volume 8.7 L 9.0-12.2 fL Immature Granulocyte % (Auto) 0 % Neutrophils (%) (Auto) 80 H 42-75 % Lymphocytes (%) (Auto) 13 12-44 % Monocytes (%) (Auto) 5 0-12 % Eosinophils (%) (Auto) 1 0-10 % Basophils (%) (Auto) 1 0-10 % Neutrophils # (Auto) 7.1 1.8-7.8 10^3/uL Lymphocytes # (Auto) 1.2 1.0-4.0 10^3/uL Monocytes # (Auto) 0.4 0.0-1.0 10^3/uL Eosinophils # (Auto) 0.1 0.0-0.3 10^3/uL Basophils # (Auto) 0.1 0.0-0.1 10^3/uL Immature Granulocyte # (Auto) 0.0 0.0-0.1 10^3/uL Prothrombin Time 13.3 12.2-14.7 SEC INR Comment 1.0 0.8-1.4 Activated Partial Thromboplast Time 25 24-35 SEC Sodium Level 140 135-145 MMOL/L Potassium Level 4.1 3.6-5.0 MMOL/L Chloride Level 111 H 98-107 MMOL/L Carbon Dioxide Level 21 21-32 MMOL/L Anion Gap 8 5-14 MMOL/L Blood Urea Nitrogen 21 H 7-18 MG/DL Creatinine 0.78 0.60-1.30 MG/DL Estimat Glomerular Filtration Rate 125 BUN/Creatinine Ratio 27 Glucose Level 91 70-105 MG/DL Calcium Level 9.5 8.5-10.1 MG/DL Corrected Calcium 9.3 8.5-10.1 MG/DL Magnesium Level 2.1 1.6-2.4 MG/DL Total Bilirubin 0.3 0.1-1.0 MG/DL Aspartate Amino Transf (AST/SGOT) 25 5-34 U/L Alanine Aminotransferase (ALT/SGPT) 54 0-55 U/L Alkaline Phosphatase 87 40-136 U/L Troponin I < 0.028 < 0.028 <0.028 NG/ML Total Protein 7.4 6.4-8.2 GM/DL Albumin 4.2 3.2-4.5 GM/DL My Orders Orders - LISBETH SERRA MD Cbc With Automated Diff (09/23/22 11:10) Magnesium (09/23/22 11:10) Chest 1 View, Ap/Pa Only (09/23/22 11:10) Ekg Tracing (09/23/22 11:10) Comprehensive Metabolic Panel (09/23/22 11:10) Protime With Inr (09/23/22 11:10) Partial Thromboplastin Time (09/23/22 11:10) O2 (09/23/22 11:10) Monitor-Rhythm Ecg Trace Only (09/23/22 11:10) Ed Iv/Invasive Line Start (09/23/22 11:10) Troponin I Sydni (09/23/22 11:10) Troponin I Sydni (09/23/22 12:32) Vital Signs/I&O 09/23/22 09/23/22 10:20 13:38 Temp 37.1 37.1 Pulse 85 78 Resp 18 18 B/P (MAP) 147/87 (107) 147/69 Pulse Ox 97 97 Blood Pressure Mean: 107 Progress Progress Note : Time: 13:00 Progress Note Patient seen and evaluated by me. Evaluation today includes physical exam, "chest pain protocol" to include EKG, single view chest x-ray, CBC, Chem-12, coagulation profile and serial troponin. Pertinent physical exam findings well- developed well-nourished male in no acute distress. Clear lungs, regular heart rhythm with occasional ectopic beat. No murmurs or gallops. No lower extremity edema, calf pain or tenderness. Abdomen is soft and benign. No focal neurologic deficits. Patient's vital signs are stable, normal room air saturations. Differential diagnosis based on history and physical exam, atypical chest pain, acute coronary syndrome, PE, pleurisy, vasovagal episode Labs, chest x-ray and EKG independently reviewed and interpreted by me. Patient's EKG is normal. No ST segment elevation or depression, he does have occasional PVC. Chest x-ray is unremarkable. CBC is normal, Chem-12 is normal, coag profile is within normal limits and troponin x2 is undetectable. Patient had stable vital signs throughout his ED visit without any deterioration in his condition. He has no evidence of ACS, no concerning complaints or physical exam findings for pulmonary embolism. He is afebrile without cough. No specific etiology as to the patient's symptoms at this time. He is at low risk for acute coronary syndrome as he is not a smoker, has no family history of first-degree relatives with coronary artery disease, his presentation is not consistent with ACS. His primary risk factor is hypertension and he is mildly obese. I discussed all of these findings with the patient and his mother who is at the bedside. Return precautions are provided in both verbal and written format. He verbalizes understanding of the plan of care and is agreeable. All questions are sought and answered. Likely vasovagal episode while riding in his tractor. Initial ECG Impression Date: Sep 23, 2022 Initial ECG Impression Time: 11:48 Initial ECG Rate: 77 Initial ECG Rhythm: Normal Sinus Initial ECG Intervals NV 169 QRS 108 QTc 403 Comment PVC noted; No ST elevation or depression; Q wave in lead III Diagnostic Imaging Diagonstic Imaging: Xray Plain Films/CT/US/NM/MRI: chest Comments [facility]. [place], [place] NAME: MARCO A [facility] REC#: [id number] PT STATUS: REG ER : 1995 PHYSICIAN: LISBETH SERRA MD ADMIT DATE: 09/23/22/ER Draft Date of Exam:09/23/22 CHEST 1 VIEW, AP/PA ONLY EXAMINATION: Chest 1 view HISTORY: Chest pain COMPARISON: 04/28/2017. FINDINGS: The lungs are clear without edema or pneumonia. No pleural effusion or pneumothorax. Heart size is normal. IMPRESSION: 1. Clear lungs. Dictated on workstation # [id number] Dict: 09/23/22 1140 Trans: 09/23/22 1141 [id number] [id number] Interpreted by: EULALIO REEDER MD Electronically signed by: Departure Impression Primary Impression: Chest pain Qualified Codes: R07.9 - Chest pain, unspecified Disposition: 01 HOME, SELF-CARE Condition: Stable Departure-Patient Inst. Decision time for Depature: 13:12 Referrals: FELIPE ACOSTA MD (PCP/Family) Primary Care Physician Patient Instructions: Chest Pain That Is Not Caused by the Heart (DC) Add. Discharge Instructions: Continue your blood pressure medications as prescribed. Be sure and drink plenty of fluids to stay well-hydrated while you are working out in the heat. Please call your primary care physician's office today for a follow-up appointment within the next week. Please return to the emergency department for any new, concerning or emergent complaints. Copy Copies To 1: FELIPE ACOSTA MD, KATHRYN M MD Sep 23, 2022 11:14
[2022-09-23 11:26] LABS: BASOPHILS # (AUTO) 0.1 10^3/uL (0.0-0.1); BASOPHILS % (AUTO) 1 % (0-10); EOSINOPHILS # (AUTO) 0.1 10^3/uL (0.0-0.3); EOSINOPHILS % (AUTO) 1 % (0-10); HEMATOCRIT 43 % (40-54); HEMOGLOBIN 14.3 g/dL (13.3-17.7); LYMPHOCYTES # (AUTO) 1.2 10^3/uL (1.0-4.0); LYMPHOCYTES % (AUTO) 13 % (12-44); MEAN CORPUSCULAR HEMOGLOBIN 29 pg (25-34); MEAN CORPUSCULAR HGB CONC 33 g/dL (32-36); MEAN CORPUSCULAR VOLUME 89 fL (80-99); MEAN PLATELET VOLUME 8.7 fL (9.0-12.2); MONOCYTES # (AUTO) 0.4 10^3/uL (0.0-1.0); MONOCYTES % (AUTO) 5 % (0-12); NEUTROPHILS # (AUTO) 7.1 10^3/uL (1.8-7.8); NEUTROPHILS % (AUTO) 80 % (42-75); PLATELET COUNT 342 10^3/uL (130-400); WHITE BLOOD COUNT 8.9 10^3/uL (4.3-11.0)
[2022-09-23 11:38] LABS: ALBUMIN 4.2 GM/DL (3.2-4.5)
[2022-09-23 11:39] LABS: CHLORIDE 111 MMOL/L (98-107); POTASSIUM 4.1 MMOL/L (3.6-5.0); SODIUM 140 MMOL/L (135-145)
[2022-09-23 11:40] LABS: CALCIUM 9.5 MG/DL (8.5-10.1)
[2022-09-23 11:41] LABS: GLUCOSE 91 MG/DL (70-105); TOTAL PROTEIN 7.4 GM/DL (6.4-8.2)
[2022-09-23 11:42] LABS: CARBON DIOXIDE 21 MMOL/L (21-32); PROTHROMBIN TIME PATIENT 13.3 SEC (12.2-14.7)
--- NOTE | 2022-09-23 11:42 | Diagnostic Imaging Report ---
EXAMINATION: Chest 1 view HISTORY: Chest pain COMPARISON: 04/28/2017. FINDINGS: The lungs are clear without edema or pneumonia. No pleural effusion or pneumothorax. Heart size is normal. IMPRESSION: 1. Clear lungs. Dictated by: Dictated on workstation # [id number]
[2022-09-23 11:43] LABS: BILIRUBIN,TOTAL 0.3 MG/DL (0.1-1.0)
[2022-09-23 11:44] LABS: ALKALINE PHOSPHATASE 87 U/L (40-136); CREATININE SERUM 0.78 MG/DL (0.60-1.30); GFR ESTIMATED 125
[2022-09-23 11:46] LABS: BUN/CREATININE RATIO 27
[2022-09-23 11:47] LABS: ALANINE AMINOTRANSFERASE 54 U/L (0-55)
[2022-09-23 11:48] LABS: MAGNESIUM 2.1 MG/DL (1.6-2.4)
[2022-09-23 13:38] VITALS: BP 147/69
== END 2022-09-23 13:39 | disposition home or self-care (01) ==
LOC: EDUNIT# 10:09 → ER 10:10
DX: R05.9 Cough, unspecified (principal)
CPT/HCPCS: 36415; 71045; 80053; 83735; 84484; 85025; 85610; 85730; 93005; 93041

== ENCOUNTER → 2022-11-17 | Outpatient (CLI) | payer BC ==
--- NOTE | 2022-11-17 11:09 | Diagnostic Imaging Report ---
PROCEDURE: US Gallbladder. INDICATION: R10.13 -epigastric pain TECHNIQUE: Multiple grayscale sonographic images were obtained of the right upper quadrant of the abdomen. CORRELATION STUDY: None FINDINGS: LIVER: There is uniform echotexture within the visualized portions of the liver. The main portal vein is patent and with normal direction of flow. Liver length 16.3 cm, normal. GALLBLADDER: The gallbladder demonstrates no definitive shadowing gallstones, abnormal gallbladder wall thickening or pericholecystic fluid. COMMON BILE DUCT: Not visualized, obscured. PANCREAS: Not visualized, obscured AORTA/IVC: Not visualized, obscured. RIGHT KIDNEY: 12.2 x 5.1 x 5.5 cm. No hydronephrosis. OTHER: No right upper quadrant ascites. IMPRESSION: 1. Limited right upper quadrant abdominal ultrasound with multiple midline structures obscured by overlying bowel gas. Visualized anatomy, unremarkable. Dictated by: Dictated on workstation # [id number]
== END ==
LOC: RAD 07:11
PROVIDERS: ATTEND Surgery
DX: R10.13 Epigastric pain (principal)
CPT/HCPCS: 76705

== ENCOUNTER → 2022-12-07 | Outpatient (CLI) | payer BC ==
[~2022-12-07] MED LIST changes: +CATHETER FLUSH 10 ML SYR IVP PRN
--- NOTE | 2022-12-07 11:08 | Diagnostic Imaging Report ---
INDICATION: 27 year-old male, right upper quadrant abdominal pain. FINDINGS: The patient was administered 5.09 mCi of Tc 99m Mebrofenin, and sequential imaging was performed over the right upper abdomen. There is progressive, homogeneous accumulation of radiotracer within the liver parenchyma. There is filling of the bile ducts and subsequent filling of the gallbladder. There is progressive clearance of activity from the liver parenchyma and accumulation of radiotracer within loops of small bowel. The patient was then administered a fatty meal, utilizing 8 ounces of Ensure. The gallbladder ejection fraction was calculated to be approximately 33.5%. (Normal values post fatty meal stimulation are 33% or greater.) IMPRESSION: 1. Hepatobiliary scan demonstrates a patent biliary tree. 2. Lower limits of normal gallbladder ejection fraction of approximately 33.5%. Dictated by: Dictated on workstation # [id number]
== END ==
LOC: CARD 08:25
PROVIDERS: ATTEND Surgery
DX: R10.11 Right upper quadrant pain (principal)
CPT/HCPCS: 78227; A9537

== ENCOUNTER → 2022-12-17 | Outpatient (CLI) | payer BC ==
[~2022-12-17] VITALS: Ht 187.9 cm; Wt 115.2 kg
[~2022-12-17] MED LIST changes: -CATHETER FLUSH 10 ML SYR IVP PRN; +CYCL10TA25 PO; +DILT180C67 PO; +METO-333 PO; +OMEP40CA6 PO
== END | disposition home or self-care (01) ==
LOC: PREOP 05:38
PROVIDERS: ATTEND Surgery
DX: Z01.818 Encounter for other preprocedural examination (principal)

== ENCOUNTER 2022-12-24 08:37 | Day surgery (SDC) | payer BC ==
[~2022-12-24] VITALS: Ht 187 cm; Wt 115.2 kg
[2022-12-24] VITALS (11 sets, daily range): BP systolic 142–174; BP diastolic 85–111
[2022-12-24] MEDS ORDERED: LIDOCAINE 2% w/EPI 1:100,000 20 ML VIAL ONE (08:53)
--- NOTE | 2022-12-24 08:59 | Progress Note-Pre Operative ---
Pre-Operative Progress Note Date H&P Reviewed: Dec 24, 2022 Time H&P Reviewed: 08:59 History & Physical: H&P Reviewed, Patient Examed, No changes noted Pre-Operative Diagnosis: biliary dyskinesia LISA PA DO Dec 24, 2022 08:59
[2022-12-24] MEDS ORDERED: ceFAZolin INJECTION 2,000 MG in NS (IVPB) 50 ML 50 ML IV ONE (09:15)
[2022-12-24] MEDS ORDERED: LACTATED RINGERS 1,000 ML 1,000 ML IV PRN (09:15)
[2022-12-24] MEDS ORDERED: MIDAZOLAM INJ 2 MG/2 ML VIAL ONE (09:35)
[2022-12-24] MEDS ORDERED: proPOfol INJECTION 200 MG/20 ML VIAL IV ONE (09:35)
[2022-12-24] MEDS ORDERED: LIDOCAINE PF 2% 5 ML VIAL ONE (09:35)
[2022-12-24] MEDS ORDERED: dexAMETHasone INJ 10 MG/ML 1 ML VIAL ONE (09:35)
[2022-12-24] MEDS ORDERED: ONDANSETRON INJECTION 4 MG/2 ML (SDV) ONE (09:35)
[2022-12-24] MEDS ORDERED: fentaNYL INJECTION 100 MCG/2 ML VIAL ONE (09:35)
[2022-12-24] MEDS ORDERED: ROCURONIUM 50 MG/5 ML VIAL IV ONE (09:35)
[2022-12-24] MEDS ORDERED: GLYCOPYRROLATE INJ 0.2 MG/ML 2 ML VIAL ONE (11:16)
[2022-12-24] MEDS ORDERED: KETOROLAC INJ 30 MG/ML VIAL ONE (11:16)
[2022-12-24] MEDS ORDERED: NEOSTIGMINE 1 MG/1ML 10 ML VIAL ONE (11:16)
[2022-12-24] MEDS ORDERED: SEVOFLURANE (ULTANE) 15 ML INHAL SOLN ONE (11:34)
--- NOTE | 2022-12-24 11:41 | Progress Note-Post Operative ---
Post-Operative Progess Note Surgeon (s)/Medical Coding Instructor (s) Surgeon LISA PA DO Medical Coding Instructor: Dr. Barakat Pre-Operative Diagnosis biliary dyskinesia Post-Operative Diagnosis same Procedure & Operative Findings Date of Procedure 12/24/22 Procedure Performed/Findings PROCEDURE: Laparoscopic cholecystectomy with intraoperative cholangiogram. COMPLICATIONS: None. PROCEDURE: The patient was taken to the operating suite and was prepped and draped in sterile fashion. A surgical pause was performed. Just superior to the umbilicus, a 12 mm incision was made. Dissection was taken down to the fascia, which was then scored and grasped with a Julieth and the abdomen was then entered. A 0 Vicryl suture was placed in a [id number]-[id number] fashion and a Marshall trocar was placed and secured. Pneumoperitoneum was achieved. A 5mm trochar place in the subxyphoid and 2 in the right upper quadrant. The gallbladder was then grasped and elevated by Dr. Barakat. The cystic duct, and cystic artery were then dissected out. Clip was placed on the distal portion of the cystic duct which was then partially transected. An arrow catheter was inserted into the duct. The cholangiogram was then performed. No filing defects and contrast made its way into the duodenum. Catheter removed. Clips were placed on proximal portion of the cystic duct and then the duct was then transected. Clips were placed along the proximal and distal portion of the cystic artery which was then transected. Hook cautery was used to dissect the gallbladder from the gallbladder fossa achieving hemostasis. The gallbladder was placed in an Endobag and removed through the 12 mm trocar site. The abdomen was then reinspected. Copious amounts of irrigation were used to irrigate the abdomen and there were no signs of active bleeding. Hemostasis had been achieved. The 12 mm fascial defect was then closed with 0 Vicryl suture that had been placed in a [id number] fashion. The abdomen was then desufflated, the trocars were removed. The abdomen was then washed and dried. The skin was then closed using 4-0 Monocryl in a subcuticular fashion. The abdomen was washed and dried and Skin Affix was place over incisions. Patient tolerated the procedure well without any complications and was taken to the recovery room in stable condition. Anesthesia Type general Estimated Blood Loss Estimated blood loss (mL): minimal Specimens/Packing Specimens Removed gallbladder LISA PA DO Dec 24, 2022 11:40
[2022-12-24] MEDS ORDERED: DOCU-143 PO (11:43)
[2022-12-24] MEDS ORDERED: ACHD5005 PO (11:43)
--- NOTE | 2022-12-24 11:44 | Discharge Inst-Simple/Standard ---
Discharge Inst-Standard Discharge Medications New, Converted or Re-Newed RX: Transmitted to Pharmacy Patient Instructions/Follow Up Plan of Care/Instructions/FU: 2 weeks Elsi Activity as Tolerated: No Discharge Diet: Regular Diet Other Inst to Patient Follow up Appt: Make appointment for 2 weeks. Instructions: No lifting greater than 10 pounds. No strenuous activity. May shower in 24 hours, no tub bath or soaking. Use incentive spirometer at home as directed. No Smoking Skin/Wound Care: You have special glue over incision, it will fall off on it's own. Symptoms to Report: Appetite Changes, Extremity Discoloration, Numbness/Tingling, Swelling Increased, Bleeding Excessive, Eyesight Changes, Pain Increased, Urine Color Change, Constipation(Persistent), Fever over 101 degree F, Pain/Pressure in chest, Urinating Difficulty, Cough Up/Vomit Blood, Heart Beat Irreg/Pounding, Pain/Pressure in jaw, Vaginal Bleeding Increase, Cramps in feet or legs, Lightheadedness, Pain/Pressure in shoulder, Diarrhea(Persistent), Memory Changes Suddenly, Questions/Concerns, Weight gain consecutive days, Dizziness/Fainting, Nausea/Vomiting, Shortness of Breath, Weight gain over 2 pounds. If eyes or skin turn yellow notify physician. If questions or concerns contact your physician Or seek help at emergency department. LISA PA DO Dec 24, 2022 11:44
[2022-12-24] MEDS ORDERED: HYDROmorphone INJECTION 2 MG/ML VIAL IV ONE (11:45)
[2022-12-24] MEDS ORDERED: ONDANSETRON INJECTION 4 MG/2 ML (SDV) IVP PRN (11:45)
[2022-12-24] MEDS ORDERED: MEPERIDINE INJ 50 MG/ML VIAL IVP ONE (11:45)
[2022-12-24] MEDS ORDERED: PROMETHAZINE INJ 25 MG/ML VIAL IVP ONE (11:45)
[2022-12-24] MEDS ORDERED: fentaNYL INJECTION 100 MCG/2 ML VIAL IVP ONE (11:45)
[2022-12-24] MEDS ORDERED: HYDROmorphone INJECTION 2 MG/ML VIAL ONE (11:47)
--- NOTE | 2022-12-24 12:00 | Diagnostic Imaging Report ---
INDICATION: Laparoscopic cholecystectomy. Fluoroscopic guidance. Right upper quadrant abdominal pain. COMPARISON: None Total fluoroscopy time: 9 seconds Total number of fluoroscopic images saved: 40 FINDINGS: Fluoroscopic guidance was provided during laparoscopic cholangiogram. Images provided show contrast opacifying the intra and extrahepatic biliary ductal systems. No large intraluminal filling defect is seen. There is no abnormal dilatation. There is normal emptying of contrast into the small bowel. Please note, interpreting radiologist was not present during the procedure. IMPRESSION: 1. Fluoroscopic guidance provided intraoperatively, as above. Dictated by: Dictated on workstation # [id number]
[2022-12-24] MEDS ORDERED: IBUPROFEN 200 MG TABLET PO ONE ×2 (12:58→13:15)
--- NOTE | 2022-12-24 13:28 | Anesthesia-General Post-Op ---
General Patient Condition Mental Status/LOC: Same as Preop Cardiovascular: Satisfactory Nausea/Vomiting: Absent Respiratory: Satisfactory Pain: Controlled Complications: Absent Post Op Complications Complications None Follow Up Care/Instructions Patient Instructions None needed. Anesthesia/Patient Condition Patient Condition Patient is doing well, no complaints, stable vital signs, no apparent adverse anesthesia problems. No complications reported per nursing. JANA STEVENSON CRNA Dec 24, 2022 13:28
== END 2022-12-24 14:00 | disposition home or self-care (01) ==
LOC: SDC 08:37
PROVIDERS: ATTEND Surgery
DX: K82.8 Other specified diseases of gallbladder (principal); K81.1 Chronic cholecystitis; F17.290 Nicotine dependence, other tobacco product, uncomplicated
CPT/HCPCS: 76000; 87081